=== PATIENT | male | born 1975 | race African-American/Black ===

== ENCOUNTER 2018-06-15 20:08 | Inpatient (IN) ==
[2018-06-15] MEDS ORDERED: KETOROLAC 30 MG/ML VIAL IV STA (20:28)
[2018-06-15] MEDS ORDERED: ONDANSETRON INJ 2 MG/ML 2 ML VIAL IV STA (20:28)
[2018-06-15] MEDS ORDERED: SODIUM CHLORIDE 0.9% 1000ML 1,000 ML IV SCH ×2 (20:30→22:45)
[2018-06-15 20:48] LABS: Basophils # (auto) 0.01 K/uL (0-0.2); Basophils % (auto) 0.1 %; Eosinophils # (auto) 0.13 K/uL (0-0.5); Eosinophils % (auto) 1.1 %; Hematocrit (blood only) 42.1 % (42-52); Hemoglobin 14.6 g/dL (14.0-18.0); Immature Granulocytes # (auto) 0.03 K/uL (0.00-0.02); Immature Granulocytes % (auto) 0.3 %; Lymphocytes # (auto) 3.56 K/uL (1.2-3.4); Lymphocytes % (auto) 29.7 %; Mean Corpuscular Hgb Conc 34.7 g/dL (32-36); Mean Corpuscular Volume 91.1 fL (80-100); Mean Platelet Volume 9.9 fL (7.4-10.4); Monocytes # (auto) 0.62 K/uL (0.11-0.59); Monocytes % (auto) 5.2 %; Neutrophils # (auto) 7.62 K/uL (1.4-6.5); Neutrophils % (auto) 63.6 %; Platelet Count 243 K/uL (130-400); RDW Coefficient of Variation 13.9 % (11.5-14.5); RDW Standard Deviation 46.6 fL (36.4-46.3); Red Blood Count 4.62 M/uL (4.7-6.1); White Blood Count 11.97 K/uL (4.8-10.8)
[2018-06-15] MEDS: HYDROmorphone INJ 1 MG/ML SYRINGE IV PRN (20:51)
--- NOTE | 2018-06-15 20:54 | XRay Report ---
XR ribs LT min 3V w CXR1V HISTORY: 42 years-old Male Pt c/o left rib pain acute left-sided rib pain COMPARISON: Chest radiograph 10/06/2015 TECHNIQUE: PA view of the chest with 4 views of the left ribs FINDINGS: Cardiomediastinal and hilar silhouettes are within normal limits. Mild right hemidiaphragmatic elevat ion. No pneumothorax, pleural effusion, focal airspace consolidation or overt pulmonary edema. No acu te displaced rib fracture identified. IMPRESSION: 1. No acute processes of the chest. 2. No acute rib fracture or pneumothorax. The above report was generated using voice recognition software. It may contain grammatical, syntax o r spelling errors. Electronically signed by: Josiah Ponce M.D. 06/15/2018 8:52 PM
[2018-06-15 21:08] LABS: Albumin Level 3.9 gm/dl (3.4-5.0); BUN Creatinine Ratio 10.3 (10-20); Calcium 8.5 mg/dl (8.5-10.1); Creatinine Clr Calc Pharmacy 76.4 ml/min; Est GFR (African American) 57.6; Est GFR (Non-African American) 49.7; Potassium 4.1 mmol/L (3.5-5.1)
[2018-06-15 21:11] LABS: Bilirubin,Total 0.4 mg/dl (0.2-1); Globulin 4.1 gm/dl (2.5-4.0)
[2018-06-15 21:55] LABS: Appearance Urine Clear (Clear); Bilirubin Urine Negative (Negative); Color Urine Yellow; Glucose Urine UA Negative (Negative); Ketones Urine Negative (Negative); Leukocyte Esterase Urine Negative (Negative); Nitrite Urine Negative (Negative); Protein Urine Negative (Negative); Specific Gravity Urine 1.018 (1.000-1.030); Urobilinogen Urine Negative (Negative); pH Urine 7.5 (4.5-7.5)
--- NOTE | 2018-06-15 22:14 | CT Scan Report ---
ABDOMEN AND PELVIS CT WITHOUT CONTRAST CT DOSE: 1057.37 mGy.cm HISTORY: Acute left-sided flank pain Pt c/o left flank pain TECHNIQUE: Multiaxial CT images of the abdomen and pelvis were performed without contrast. A dose lo wering technique was utilized adhering to the principles of ALARA. COMPARISON STUDY: None. FINDINGS: There is a lobular linear nodular density about the lateral basal segment left lower lobe measuring u p to 3.0 cm in length suggestive of mucoid impaction and expansion of the bronchus with minimal assoc iated tree-in-bud nodules seen distally suggesting associated bronchiolitis. Punctate calcified granu lomata about the left lung base. Ptosis or pneumoperitoneum. Imaged inferior cardiac chambers are unr emarkable. Contracted gallbladder. Liver is unremarkable. Spleen, and pancreas appear unremarkable. Mild strandi ng about the left greater than right adrenal glands, indeterminate. Additionally, there is mild thick ening about the bilateral adrenal glands. Indeterminate area of slightly decreased attenuation about the posterior interpolar left kidney, 11 mm suggests renal cyst. No renal calculi or obstructive urop athy. Minimal perinephric stranding adjacent to the superior pole left kidney. Mild wall thickening o f the bladder with partial distention. Prostate is unremarkable. Aorta and IVC are within normal limi ts. No bowel obstruction or focal bowel wall thickening. Normal appendix. No ascites or mesenteric in flammatory changes. Mildly prominent bilateral inguinal chain lymph nodes, likely reactive. Bones appear intact. Multilev el spondylitic spurring and facet arthrosis. Moderate intervertebral disc space narrowing at L5-S1. B ilateral foraminal narrowing noted at this interspace. Subcortical cystic changes about the bilateral femoral acetabular joints with joint space narrowing. IMPRESSION: 1. No renal calculi or obstructive uropathy. 2. Mild thickening with surrounding inflammatory stranding about the left greater than right adrenal glands. This finding is nonspecific with differential considerations including adrenal insufficiency or subacute adrenal hemorrhage. 3. No bowel obstruction or focal bowel wall thickening. Normal appendix. 4. Tubular linear 3.0 cm lesion of the lateral basal segment left lower lobe suggests bronchial mucou s plugging with minimal adjacent bronchiolitis. 5. Additional findings as above. Electronically signed by: Josiah Ponce M.D. 06/15/2018 10:13 PM
[2018-06-16] MEDS: HYDROmorphone INJ 1 MG/ML SYRINGE IV PRN ×6 (00:08→21:14)
[2018-06-16] MEDS ORDERED: ACETAMINOPHEN 1000 MG/100 ML IV IV PRN (00:29)
--- NOTE | 2018-06-16 00:47 | History & Physical Report ---
Date of Service June 16, 2018 Assessment & Plan (1) Acute flank pain: 42-year-old male was admitted on 16 June 2018 with c/o left flank pain and evidence of adrenal hemorrhage on CT. Left flank pain and concern for adrenal hemorrhage: Acute onset of pain about 24 hours prior to admit following increased cough. CT a/p non-con concerning for possible adrenal hemorrhage. In ED, pain treated with toradol & dilaudid. Per their notes, Dr. William of [facility] endocrinology recommended MRI and admission. - Is pending a MRI of his abdomen for further evaluation. - Cancelled urgent serum catecholamines and urine metanephrines, as patient needs to be NPO for at least four hours. Will obtain those tests then. - Ordered routine renin and aldosterone levels. - May need combination of Hydrocortisone 100 mg IV q8h and Fludrocortisone 0.1 mg PO BID. It was not immediately ordered. Cough: He attributes his cough to smoking (cigarettes and marijuana). Denies chest pain or shortness of breath. Says he had the flu a week ago with symptom resolution three days later except the cough. Was taking an OTC cold medicine, possibly Coricidin HBP. Here is afebrile, not tachycardic or tachypneic, normal room SpO2, and clear lungs to auscultation. Elevated BP: Initially 169/103. Monitoring along with adrenal workup as above. Elevated creatinine: Admit Cr 1.67. No available comparison and patient denies underlying known renal disease. UA clear. Says he occasionally takes ibuprofen for back pain. - Will recheck with AM labs after some IVF. Substance abuse: Patient admits to frequent marijuana use as well as street- derived Suboxone for back pain. He denies ever using heroin or opioids directly. - Ordered urine drug screen. Abdominal wall mass: Patient says this is been present for quite some time and is not really bothersome to him. Statistically I suspect it is a lipoma. Recommended he have close outpatient follow-up for further evaluation and potential removal. Code status: Full code. Diet: NPO. DVT prophy: SCDs. PT/OT: Deferred. Disbo: Admit to PCU/telemetry. (2) Adrenal hemorrhage: (3) Cough: (4) Elevated BP without diagnosis of hypertension: (5) Elevated serum creatinine: (6) Substance abuse: (7) Abdominal wall mass of right lower quadrant: History of Present Illness Primary Care Provider: Vivian Kaur MD 42-year-old male presents complaining of the acute onset of left, non-radiating flank pain beginning the late evening of June 15. He says that he has been coughing more harshly over the past week and the pain was of sudden onset at the time of a strong cough. He says his cough may be related to either having "the flu" a week ago or because he says he has been smoking both cigarettes and marijuana quite frequently. He will not clarify exactly how much tobacco or marijuana he consumes. Regarding his self-reported flu symptoms , he says he had a subjective fever and general flu symptoms but that resolved within 3-4 days. He says he continues to have a cough occasionally productive of mucus. Regarding the flank pain, he says he has never had similar pain prior. He says the pain never completely resolved since its onset but has improved with pain medicines in the ED. He denies taking any mius-cpt-lpcuhcc pain medications for this. However, he does admit to using Suboxone obtained from his friends about every other day for perhaps the past year (though he will not clarify). He denies any previous opioid or heroin use and says that he started the Suboxone due to low back pain. He did take some Coricidin HBP for his flu symptoms. He also occasionally takes ibuprofen. He states that this flank pain remains localized and denies any chest pain, shortness of breath , anterior abdominal pain, recent trauma or injuries, or any other acute concerns. Allergies Allergy/AdvReac Type Severity Reaction Status Date / Time No Known Allergies Allergy Verified 06/15/18 20:33 Home Medications Home Medications Medication Instructions Recorded Confirmed Type Otc Cold & Flu Med 1 dose PO DIRECTED PRN 06/15/18 06/15/18 History oxycodone-acetaminophen [Percocet] 1 tab PO Q6H #14 tab 06/15/18 Rx Past Med/Surg History Medical History Flu Gout Family History Other Cancer Diabetes High blood pressure Social History Current Living Situation: Significant Other Current Living Situation Comment: [facility] Other Information That Helps Us Care for You: No Feels Safe at Home: Yes Safety Concerns: Feels Safe At This Time Smoking Status: Current every day smoker Tobacco Type: cigarettes Do You Dip or Chew Tobacco: No Second Hand Exposure: Yes Tobacco Cessation Education Requested by Patient: No Hx Alcohol Use: Yes Alcohol type: beer and hard liquor Alcohol Intake Frequency : a few times a month Hx Substance Use: Yes substance use type: marijuana Last Used Substance: Days ( ago) Beliefs That Will Affect Care: None Preferred Language: Yi Communication Ability: Effective Parachute Crown Sewer Required: No Review of Systems Constitutional: Denies fevers, chills, focal weakness Eyes: Denies any visual loss or diplopia ENT: Denies any ear/nose/throat pain or difficulty speaking or swallowing Respiratory: Denies any dyspnea, hemoptysis Cardiovascular: Denies any chest pain or feeling of edema Gastrointestinal: Denies any abdominal pain, nausea/vomiting/diarrhea Musculoskeletal: Denies any acute extremity pains, myalgias, or focal weakness Skin: Denies any known acute rashes or lesions Neuro: Denies any headache, acute focal weakness or numbness, or difficulties with speech or swallow. Psych: Denies any recent depression or anxiety Endocrine: Denies any changes in urination. Physical Exam 2 Vital Signs (Past 24 Hours): Last Vital Signs Temp 37 C 06/15/18 20:14 Pulse 71 06/16/18 00:29 Resp 18 06/16/18 00:29 BP 169/107 H 06/16/18 00:29 Pulse Ox 99 06/16/18 00:29 Physical Exam: GENERAL: Awake, alert, well-appearing, in no acute distress HENT: Normocephalic, atraumatic. Oropharynx unremarkable. EYES: Normal conjunctiva. Sclera non-icteric. NECK: Inspection normal. Non-tender. Supple and full ROM. No nuchal rigidity. CARDIAC: +S1S2 RRR, no murmurs. RESPIRATORY: Clear to auscultation. No wheezes or rales. Normal respiratory effort. GI: +BS, soft, non-distended. No tenderness to palpation. No rebound or guarding. No appreciable masses. EXTREMITIES: No pedal edema or calf tenderness. Moving all extremities naturally and easily. NEURO: No gross neuro deficits. Skin: There is an approx. four cm palpable mass in the very low lateral right lower quadrant abdominal region that is non-tender, has no overlying skin changes, and has the consistency of a lipoma. Lines: PIV. Results & Data Laboratory Results 06/15/18 06/15/18 06/15/18 Range/Units 21:30 21:30 20:30 WBC (4.8-10.8) K/uL RBC (4.7-6.1) M/uL Hgb (14.0-18.0) g/dL Hct (42-52) % MCV (80-100) fL MCH (25-34) pg MCHC (32-36) g/dL RDW Std Deviation (36.4-46.3) fL RDW Coeff of Natalie (11.5-14.5) % Plt Count (130-400) K/uL MPV (7.4-10.4) fL Immature Gran % (Auto) % Neut % (Auto) % Lymph % (Auto) % White % (Auto) % Eos % (Auto) % Baso % (Auto) % Immature Gran # (Auto) (0.00-0.02) K/uL Neut # (Auto) (1.4-6.5) K/uL Lymph # (Auto) (1.2-3.4) K/uL White # (Auto) (0.11-0.59) K/uL Eos # (Auto) (0-0.5) K/uL Baso # (Auto) (0-0.2) K/uL Sodium (136-145) mmol/L Potassium (3.5-5.1) mmol/L Chloride (98-107) mmol/L Carbon Dioxide (21-32) mmol/L Anion Gap (3-11) BUN (7-18) mg/dl Creatinine (0.6-1.4) mg/dl Est Cr Clr Drug Dosing ml/min Est GFR ( Amer) Est GFR (Non-Af Amer) BUN/Creatinine Ratio (10-20) Glucose (70-99) mg/dl Calcium (8.5-10.1) mg/dl Total Bilirubin (0.2-1) mg/dl AST (15-37) U/L ALT (12-78) U/L Alkaline Phosphatase (45-117) U/L Total Protein (6.4-8.2) gm/dl Albumin (3.4-5.0) gm/dl Globulin (2.5-4.0) gm/dl Albumin/Globulin Ratio (0.9-2) Lipase (73-393) U/L Random Cortisol Pending Urine Color Yellow Urine Appearance Clear (Clear) Urine pH 7.5 (4.5-7.5) Ur Specific Delmar 1.018 (1.000-1.030) Urine Protein Negative (Negative) Urine Glucose (UA) Negative (Negative) Urine Ketones Negative (Negative) Urine Blood Negative (Negative) Urine Nitrite Negative (Negative) Urine Bilirubin Negative (Negative) Urine Urobilinogen Negative (Negative) Ur Leukocyte Esterase Negative (Negative) Ur Random Creatinine Pending Ur Rifle Metanephrines Pending U Normetanephrine Pending U Total Metanephrines Pending 06/15/18 06/15/18 Range/Units 20:30 20:30 WBC 11.97 H (4.8-10.8) K/uL RBC 4.62 L (4.7-6.1) M/uL Hgb 14.6 (14.0-18.0) g/dL Hct 42.1 (42-52) % MCV 91.1 (80-100) fL MCH 31.6 (25-34) pg MCHC 34.7 (32-36) g/dL RDW Std Deviation 46.6 H (36.4-46.3) fL RDW Coeff of Natalie 13.9 (11.5-14.5) % Plt Count 243 (130-400) K/uL MPV 9.9 (7.4-10.4) fL Immature Gran % (Auto) 0.3 % Neut % (Auto) 63.6 % Lymph % (Auto) 29.7 % White % (Auto) 5.2 % Eos % (Auto) 1.1 % Baso % (Auto) 0.1 % Immature Gran # (Auto) 0.03 H (0.00-0.02) K/uL Neut # (Auto) 7.62 H (1.4-6.5) K/uL Lymph # (Auto) 3.56 H (1.2-3.4) K/uL White # (Auto) 0.62 H (0.11-0.59) K/uL Eos # (Auto) 0.13 (0-0.5) K/uL Baso # (Auto) 0.01 (0-0.2) K/uL Sodium 141 (136-145) mmol/L Potassium 4.1 (3.5-5.1) mmol/L Chloride 109 H (98-107) mmol/L Carbon Dioxide 26 (21-32) mmol/L Anion Gap 7.0 (3-11) BUN 17 (7-18) mg/dl Creatinine 1.67 H (0.6-1.4) mg/dl Est Cr Clr Drug Dosing 76.4 ml/min Est GFR ( Amer) 57.6 Est GFR (Non-Af Amer) 49.7 BUN/Creatinine Ratio 10.3 (10-20) Glucose 97 (70-99) mg/dl Calcium 8.5 (8.5-10.1) mg/dl Total Bilirubin 0.4 (0.2-1) mg/dl AST 23 (15-37) U/L ALT 34 (12-78) U/L Alkaline Phosphatase 82 (45-117) U/L Total Protein 8.0 (6.4-8.2) gm/dl Albumin 3.9 (3.4-5.0) gm/dl Globulin 4.1 H (2.5-4.0) gm/dl Albumin/Globulin Ratio 1.0 (0.9-2) Lipase 109 (73-393) U/L Random Cortisol Urine Color Urine Appearance (Clear) Urine pH (4.5-7.5) Ur Specific Delmar (1.000-1.030) Urine Protein (Negative) Urine Glucose (UA) (Negative) Urine Ketones (Negative) Urine Blood (Negative) Urine Nitrite (Negative) Urine Bilirubin (Negative) Urine Urobilinogen (Negative) Ur Leukocyte Esterase (Negative) Ur Random Creatinine Ur Rifle Metanephrines U Normetanephrine U Total Metanephrines Diagnostic Findings XR ribs LT min 3V w CXR1V IMPRESSION: 1. No acute processes of the chest. 2. No acute rib fracture or pneumothorax. ABDOMEN AND PELVIS CT WITHOUT CONTRAST IMPRESSION: 1. No renal calculi or obstructive uropathy. 2. Mild thickening with surrounding inflammatory stranding about the left greater than right adrenal glands. This finding is nonspecific with differential considerations including adrenal insufficiency or subacute adrenal hemorrhage. 3. No bowel obstruction or focal bowel wall thickening. Normal appendix. 4. Tubular linear 3.0 cm lesion of the lateral basal segment left lower lobe suggests bronchial mucous plugging with minimal adjacent bronchiolitis. 5. Additional findings as above. Code Status & VTE Plan Code Status Full code VTE Prophylaxis Plan VTE Prophylaxis will be ordered: Yes Supervising Physician Co-Signing Physician Notes Attending addendum: I have physically seen this patient, have supervised the medical residents activities, and agree with the H&P unless as otherwise noted. Assessment and Plan: Acute flank pain/bilateral adrenal gland hemorrhage/hypertensive urgency/acute kidney injury-- As noted on CT. Order MRI of abdomen, attention adrenals and kidneys. Serum catecholamines and urine metanephrine. Serum renin and aldosterone. Cortrosyn stim test. Gentle IVF's. Serial CBC with differential, basic metabolic panel and magnesium levels. Lopressor 5 mg IV every 4 hours as needed systolic blood pressure greater than 150 if heart rate greater than 70. Hydralazine 10 mg IV every 4 hours as needed systolic blood pressure greater than 150 if heart rate less than 70. Remainder of orders and notations as noted. Resident Activity Tracking Resident Involvement: Resident Care Provided Care Provided: Adult Hospital Medicine
[2018-06-16] MEDS: SODIUM CHLORIDE 0.9% 1000ML 1,000 ML IV SCH ×3 (01:39→21:15)
[2018-06-16 03:25] LABS: Amphetamines+Metham, Urine Neg (Neg); Barbiturates, Urine Neg (Neg); Benzodiazepine, Urine Neg (Neg); Cocaine, Urine Neg (Neg); MDMA (Ecstacy), Urine Neg (Neg); Methadone, Urine Neg (Neg); Opiate, Urine Pos (Neg); Phencyclidine, Urine Neg (Neg)
[2018-06-16 06:45] LABS: Basophils # (auto) 0.01 K/uL (0-0.2); Basophils % (auto) 0.1 %; Eosinophils # (auto) 0.12 K/uL (0-0.5); Eosinophils % (auto) 1.2 %; Hematocrit (blood only) 40.5 % (42-52); Hemoglobin 13.7 g/dL (14.0-18.0); Immature Granulocytes # (auto) 0.04 K/uL (0.00-0.02); Immature Granulocytes % (auto) 0.4 %; Lymphocytes # (auto) 3.51 K/uL (1.2-3.4); Lymphocytes % (auto) 35.5 %; Mean Corpuscular Hgb Conc 33.8 g/dL (32-36); Mean Platelet Volume 9.9 fL (7.4-10.4); Monocytes # (auto) 0.62 K/uL (0.11-0.59); Monocytes % (auto) 6.3 %; Neutrophils # (auto) 5.59 K/uL (1.4-6.5); Neutrophils % (auto) 56.5 %; Platelet Count 235 K/uL (130-400); RDW Coefficient of Variation 13.9 % (11.5-14.5); RDW Standard Deviation 45.9 fL (36.4-46.3); Red Blood Count 4.45 M/uL (4.7-6.1); White Blood Count 9.89 K/uL (4.8-10.8)
[2018-06-16 07:09] LABS: Est GFR (African American) 74.5; Est GFR (Non-African American) 64.3
[2018-06-16 07:10] LABS: BUN Creatinine Ratio 11.7 (10-20); Calcium 8.4 mg/dl (8.5-10.1); Creatinine Clr Calc Pharmacy 94.8 ml/min
--- NOTE | 2018-06-16 07:35 | Magnetic Resonance Report ---
MRI OF THE ABDOMEN WITHOUT CONTRAST ADRENAL PROTOCOL CLINICAL HISTORY: Left flank pain. Possible adrenal hemorrhage. TECHNIQUE: Imaging was performed without IV contrast enhancement. COMPARISON STUDY: CT of the abdomen and pelvis June 15, 2018. FINDINGS: The adrenal glands are unremarkable on this examination. Specifically, no adrenal hemorrhag e or mass is present. Unenhanced images of the liver, pancreas and kidneys are unremarkable with exce ption of a few suspected subcentimeter bilateral renal cysts. There is no hydronephrosis. There is no upper abdominal adenopathy or ascites. There is no biliary or pancreatic ductal dilatation. No galls tones are identified. Note is made of mild increased T2 signal suggestive of edema/contusion within t he left lateral abdominal wall muscular shown best on axial image 15 of 26. No additional abnormaliti es are identified. IMPRESSION: 1. Unremarkable MRI of the adrenal glands. 2. Mild increased T2 signal within the left lateral abdominal wall musculature which likely accounts for the patient's left flank pain. This may reflect edema or contusion/small amount of hemorrhage if recent injury. Electronically signed by: Musa Bernard M.D. 06/16/2018 7:33 AM
[2018-06-16] MEDS ORDERED: COSYNTROPIN 250 MCG in SYRINGE 4 ML IV ONE (08:30)
[2018-06-16] MEDS ORDERED: AMLODIPINE BESYLATE 5 MG TAB PO ONE (09:18)
[2018-06-16] MEDS ORDERED: LISINOPRIL 10 MG TAB PO ONE (16:15)
[2018-06-16] MEDS ORDERED: guaiFENesin 600 MG TABCR PO ONE (16:30)
[2018-06-16] MEDS: LIDOCAINE 5% 1 PATCH TD SCH (16:41)
[2018-06-16] MEDS ORDERED: guaiFENesin 600 MG TABCR PO SCH (21:00)
--- NOTE | 2018-06-16 23:39 | Communication Note ---
Date of Service: June 16, 2018 Patient appears to be chronically hypertensive. Patient states that he does not regularly followup with PCP. Patient reports having pain in his left side, pain worsens with cough. He feels he may have strained himself while coughing. Patient is informed of his lab results and imaging, it does not appear patient has a hemorrhage of his adrenal glands. For his HTN, will place on amlodipine and lisnopril. Will f/u BP in AM. If BP is improved and pain is better controlled will discharge patient in AM. Patient has required IV narcotics for pain control today. Will add a one time dose of mucinex.
[2018-06-17] MEDS: HYDROmorphone INJ 1 MG/ML SYRINGE IV PRN ×2 (05:12→10:56)
[2018-06-17] MEDS: SODIUM CHLORIDE 0.9% 1000ML 1,000 ML IV SCH (06:23)
[2018-06-17] MEDS ORDERED: guaiFENesin 600 MG TABCR PO STA (07:28)
[2018-06-17 08:20] LABS: Hematocrit (blood only) 42.7 % (42-52); Hemoglobin 15.3 g/dL (14.0-18.0); Mean Corpuscular Hgb Conc 35.8 g/dL (32-36); Mean Corpuscular Volume 89.9 fL (80-100); Mean Platelet Volume 9.9 fL (7.4-10.4); Platelet Count 265 K/uL (130-400); RDW Coefficient of Variation 13.5 % (11.5-14.5); RDW Standard Deviation 44.5 fL (36.4-46.3); Red Blood Count 4.75 M/uL (4.7-6.1); White Blood Count 11.56 K/uL (4.8-10.8)
[2018-06-17 08:36] LABS: BUN Creatinine Ratio 9.2 (10-20); Creatinine Clr Calc Pharmacy 86.2 ml/min; Est GFR (African American) 67.8; Est GFR (Non-African American) 58.5; Potassium 3.9 mmol/L (3.5-5.1)
[2018-06-17] MEDS: LIDOCAINE 5% 1 PATCH TD SCH (08:45)
[2018-06-17] MEDS ORDERED: AMLODIPINE BESYLATE 5 MG TAB PO ONE (10:24)
[2018-06-17 11:17] VITALS: TEMP 98.1; O2SAT 99
[2018-06-17 12:16] VITALS: BP 164/113
[2018-06-17 12:56] VITALS: PULSE 59
--- NOTE | 2018-06-17 19:49 | Emergency Department Note ---
Entered by Jennifer Noguera acting as a scribe for Сергей Dhaliwal MD History of Present Illness General Chief complaint: Flank Pain Stated complaint: L FLANK PAIN Time Seen by Provider: 06/15/18 20:19 Source: patient History of Present Illness Onset (ago): day(s) 1 Location: left (Flank) Radiation: non-radiation Pain Consistency: + other (Persistent) Maximum Pain Intensity: 8 Quality: + other (Flank pain) Exacerbated By: + other (Coughing) Associated symptoms: + cough Treatments prior to arrival: none The patient is a 42 year old male who presents to the Emergency Room with complaints of sudden left flank pain starting 1 day ago. The patient reports that he has severe left flank pain and a cough. He adds that his left flank pain is non-radiating. He states that coughing makes his flank pain worse. He notes that he has never had this pain before. The patient reports that he took nothing for his symptoms ASPHALT COATER. Home Medications Home Medications Medication Instructions Recorded Confirmed Type Otc Cold & Flu Med 1 dose PO DIRECTED PRN 06/15/18 06/15/18 History oxycodone-acetaminophen [Percocet] 1 tab PO Q6H #14 tab 06/15/18 Rx amlodipine 5 mg PO DAILY #30 tab 06/17/18 Rx guaifenesin [Mucinex] 1,200 mg PO Q12 #14 tab 06/17/18 Rx lisinopril 10 mg PO HS #30 tab 06/17/18 Rx oxycodone 5 mg PO Q6H PRN #20 tab 06/17/18 Rx Allergies Allergy/AdvReac Type Severity Reaction Status Date / Time No Known Allergies Allergy Verified 06/15/18 20:33 Past Med/Surg History Medical History Flu Gout Family History Other Cancer Diabetes High blood pressure Social History Current Living Situation: Significant Other Current Living Situation Comment: [facility] [employer] Other Information That Helps Us Care for You: No Feels Safe at Home: Yes Safety Concerns: Feels Safe At This Time Smoking Status: Current every day smoker Tobacco Type: cigarettes Do You Dip or Chew Tobacco: No Second Hand Exposure: Yes Tobacco Cessation Education Requested by Patient: No Hx Alcohol Use: Yes Alcohol type: beer and hard liquor Alcohol Intake Frequency : a few times a month Hx Substance Use: Yes substance use type: marijuana Last Used Substance: Days ( ago) Beliefs That Will Affect Care: None Preferred Language: American Review of Systems See HPI for pertinent positives & negatives. and A total of 10 systems reviewed and were otherwise negative Physical Exam Vital Signs Vital Signs - 24 hr 06/16/18 19:48 06/16/18 20:00 06/16/18 23:39 Temperature 36.8 C 37.5 C Temperature Source Oral Oral Pulse Rate Pulse Rate [Finger] 66 70 Respiratory Rate 18 19 Respiratory Effort / Characteristics Non-Labored Spontaneous Respiratory Depth Normal Respiratory Pattern Regular Blood Pressure [Left Arm] 157/102 H 161/112 H Blood Pressure [Right Arm] Blood Pressure Mean [Left Arm] 120 128 Blood Pressure Position [Left Arm] Lying Lying Pulse Oximetry 97 91 Oxygen Delivery Method Room Air Room Air Room Air 06/17/18 02:53 06/17/18 07:30 06/17/18 07:36 Temperature 36.9 C 37.0 C Temperature Source Oral Oral Pulse Rate 59 L Pulse Rate [Finger] 64 59 L Respiratory Rate 19 16 Respiratory Effort / Characteristics Non-Labored Spontaneous Respiratory Depth Normal Respiratory Pattern Regular Blood Pressure [Left Arm] 146/96 H 165/104 H Blood Pressure [Right Arm] Blood Pressure Mean [Left Arm] 112 124 Blood Pressure Position [Left Arm] Lying Lying Pulse Oximetry 99 97 Oxygen Delivery Method Room Air Room Air 06/17/18 11:15 06/17/18 12:09 Temperature 36.7 C 36.7 C Temperature Source Oral Pulse Rate Pulse Rate [Finger] 85 85 Respiratory Rate 20 20 Respiratory Effort / Characteristics Respiratory Depth Respiratory Pattern Blood Pressure [Left Arm] 157/109 H 157/109 H Blood Pressure [Right Arm] 164/113 H Blood Pressure Mean [Left Arm] 125 Blood Pressure Position [Left Arm] Pulse Oximetry 99 99 Oxygen Delivery Method Room Air GENERAL: Awake, alert, well-appearing, in no distress HENT: Normocephalic, atraumatic. Oropharynx unremarkable. EYES: Normal conjunctiva. Sclera non-icteric. NECK: Inspection normal. Non-tender. Supple. No nuchal rigidity. FROM. No masses. RESPIRATORY: Clear to auscultation. No wheezes. No rales. Normal respiratory effort. CARDIAC: Normal rate. Normal rhythm. No murmurs. No rubs. Extremities warm and well perfused. Pulses equal. No JVD. GI: Soft, non-distended. No tenderness to palpation. No rebound or guarding. No masses. RECTAL: Deferred. MUSCULOSKELETAL: Atraumatic. Chest examination reveals no tenderness. The back is symmetrical on inspection without obvious abnormality. There is no CVA tenderness to palpation. No joint edema. LOWER EXTREMITIES: Calves are equal size bilaterally and non-tender. No edema. No discoloration. NEURO: Normal sensorium. No sensory or motor deficits noted. SKIN: No rash or jaundice noted. Course 2021: Past medical records reviewed. The patient was evaluated in room B4B, and a complete history and physical examination were performed. 2221: I reevaluated the patient at this time and updated him on his imaging study findings. 2222: I spoke with Dr. Ponce [facility] radiologist about the patients CT A/ P. 2237: I reviewed the patient's case with Dr. Terrance Saha [facility] hospitalist who recommended that the patient get an MRI. 2250: I reevaluated the patient at this time. 2258: I reviewed the patient's case with Dr. Stewart Patten touch up worker who recommends that the patient get an MRI without contrast and that the patient be admitted for additional testing. I reviewed the patient's case with Dr. Terrance Saha [facility] hospitalist. He will evaluate the patient for further management. Administered Medications Discontinued Medications Amlodipine Besylate (Norvasc) 5 mg PO NOW ONE Stop: 06/16/18 09:19 Last Admin: 06/16/18 09:52 Dose: 5 mg Amlodipine Besylate (Norvasc) 5 mg PO NOW ONE Stop: 06/17/18 10:25 Last Admin: 06/17/18 10:56 Dose: 5 mg Guaifenesin (Mucinex) 1,200 mg PO NOW ONE Stop: 06/16/18 16:31 Last Admin: 06/16/18 16:42 Dose: 1,200 mg Guaifenesin (Mucinex) 1,200 mg PO ONE STA Stop: 06/17/18 07:29 Last Admin: 06/17/18 08:45 Dose: 1,200 mg Hydromorphone HCl (Dilaudid) 1 mg IV Q15M PRN PRN Reason: Pain Stop: 06/29/18 20:27 Last Admin: 06/16/18 00:08 Dose: 1 mg Admin: 06/15/18 20:51 Dose: 1 mg Hydromorphone HCl (Dilaudid) 1 mg IV Q4H PRN PRN Reason: Pain Stop: 06/30/18 00:28 Last Admin: 06/17/18 10:56 Dose: 1 mg Admin: 06/17/18 05:12 Dose: 1 mg Admin: 06/16/18 21:14 Dose: 1 mg Admin: 06/16/18 16:12 Dose: 1 mg Admin: 06/16/18 11:12 Dose: 1 mg Admin: 06/16/18 05:59 Dose: 1 mg Admin: 06/16/18 01:36 Dose: 1 mg Sodium Chloride (Nss 1000ml) 1,000 mls @ 999 mls/hr IV .Q1H1M NICOLASA Stop: 06/15/18 21:30 Last Infusion: 06/15/18 21:45 Dose: 0 mls/hr Admin: 06/15/18 20:52 Dose: 999 mls/hr Sodium Chloride (Nss 1000ml) 1,000 mls @ 999 mls/hr IV .Q1H1M NICOLASA Stop: 06/15/18 23:45 Last Infusion: 06/16/18 00:05 Dose: 0 mls/hr Admin: 06/15/18 22:46 Dose: 999 mls/hr Sodium Chloride (Nss 1000ml) 1,000 mls @ 100 mls/hr IV .Q10H NICOLASA Stop: 07/16/18 00:29 Last Admin: 06/17/18 06:23 Dose: 100 mls/hr Infusion: 06/17/18 06:23 Dose: 100 mls/hr Admin: 06/16/18 21:15 Dose: 100 mls/hr Infusion: 06/16/18 21:15 Dose: 100 mls/hr Admin: 06/16/18 13:01 Dose: 100 mls/hr Infusion: 06/16/18 12:37 Dose: 100 mls/hr Infusion: 06/16/18 03:05 Dose: 100 mls/hr Infusion: 06/16/18 02:08 Dose: 0 mls/hr Admin: 06/16/18 01:39 Dose: 100 mls/hr Cosyntropin 250 mcg/ Syringe 5 mls @ 2.5 mls/min IV TODAY@0830 ONE Stop: 06/16/18 08:31 Last Admin: 06/16/18 09:35 Dose: 2.5 mls/min Ketorolac Tromethamine (Toradol) 30 mg IV NOW STA Stop: 06/15/18 20:29 Last Admin: 06/15/18 20:51 Dose: 30 mg Lidocaine (Lidoderm 5%) 1 patch TD QAM [facility] Stop: 07/16/18 16:14 Last Admin: 06/17/18 08:45 Dose: 1 patch Admin: 06/16/18 16:41 Dose: 1 patch Lisinopril (Zestril) 10 mg PO NOW ONE Stop: 06/16/18 16:16 Last Admin: 06/16/18 16:42 Dose: 10 mg Miscellaneous (Remove Lidoderm Patch) 1 ea N/A DAILY@2100 [facility] Stop: 07/16/18 20:59 Last Admin: 06/16/18 21:21 Dose: Not Given Ondansetron HCl (Zofran) 4 mg IV NOW STA Stop: 06/15/18 20:29 Last Admin: 06/15/18 20:51 Dose: 4 mg Medical Decision Making Differential Diagnosis Differential considered: pancreatitis, hepatitis, or acute cholecystitis, AAA, UTI, pyelonephritis, kidney stones, appendicitis, diverticulitis, shingles, bowel obstruction mesenteric ischemia, intussusception,hernia, testicular torsion, ovarian torsion, ruptured ovarian cyst,ectopic , . Medical Records Attestation: I reviewed the patient's medical records. Home Medications Current Medication List: was personally reviewed by me Laboratory Data Attestation: I reviewed the patient's lab results. Result diagrams: 06/17/18 07:57 06/17/18 07:57 Lab Results 06/15/18 06/15/18 06/15/18 Range/Units 20:30 20:30 20:30 WBC 11.97 H (4.8-10.8) K/uL RBC 4.62 L (4.7-6.1) M/uL Hgb 14.6 (14.0-18.0) g/dL Hct 42.1 (42-52) % MCV 91.1 (80-100) fL MCH 31.6 (25-34) pg MCHC 34.7 (32-36) g/dL RDW Std Deviation 46.6 H (36.4-46.3) fL RDW Coeff of Natalie 13.9 (11.5-14.5) % Plt Count 243 (130-400) K/uL MPV 9.9 (7.4-10.4) fL Immature Gran % (Auto) 0.3 % Neut % (Auto) 63.6 % Lymph % (Auto) 29.7 % Angelina % (Auto) 5.2 % Eos % (Auto) 1.1 % Baso % (Auto) 0.1 % Immature Gran # (Auto) 0.03 H (0.00-0.02) K/uL Neut # (Auto) 7.62 H (1.4-6.5) K/uL Lymph # (Auto) 3.56 H (1.2-3.4) K/uL Angelina # (Auto) 0.62 H (0.11-0.59) K/uL Eos # (Auto) 0.13 (0-0.5) K/uL Baso # (Auto) 0.01 (0-0.2) K/uL Sodium 141 (136-145) mmol/L Potassium 4.1 (3.5-5.1) mmol/L Chloride 109 H (98-107) mmol/L Carbon Dioxide 26 (21-32) mmol/L Anion Gap 7.0 (3-11) BUN 17 (7-18) mg/dl Creatinine 1.67 H (0.6-1.4) mg/dl Est Cr Clr Drug Dosing 76.4 ml/min Est GFR ( Amer) 57.6 Est GFR (Non-Af Amer) 49.7 BUN/Creatinine Ratio 10.3 (10-20) Glucose 97 (70-99) mg/dl Calcium 8.5 (8.5-10.1) mg/dl Total Bilirubin 0.4 (0.2-1) mg/dl AST 23 (15-37) U/L ALT 34 (12-78) U/L Alkaline Phosphatase 82 (45-117) U/L Total Protein 8.0 (6.4-8.2) gm/dl Albumin 3.9 (3.4-5.0) gm/dl Globulin 4.1 H (2.5-4.0) gm/dl Albumin/Globulin Ratio 1.0 (0.9-2) Lipase 109 (73-393) U/L Random Cortisol 22.79 mcg/dl Cortisol Response mcg/dl Cortisol AM Sample Cortisol PM Sample Cancelled Urine Color Urine Appearance (Clear) Urine pH (4.5-7.5) Ur Specific [place] (1.000-1.030) Urine Protein (Negative) Urine Glucose (UA) (Negative) Urine Ketones (Negative) Urine Blood (Negative) Urine Nitrite (Negative) Urine Bilirubin (Negative) Urine Urobilinogen (Negative) Ur Leukocyte Esterase (Negative) Urine Opiates Screen (Neg) Ur Methadone, Qual (Neg) Urine Barbiturates (Neg) Ur Phencyclidine (PCP) (Neg) U Amphetamin/Meth Scrn (Neg) MDMA (Ecstasy) Screen (Neg) U Benzodiazepines Scrn (Neg) Ur Cocaine Metabolite (Neg) U Marijuana (THC) Screen (Neg) 06/15/18 06/16/18 06/16/18 Range/Units 21:30 02:57 06:16 WBC 9.89 (4.8-10.8) K/uL RBC 4.45 L (4.7-6.1) M/uL Hgb 13.7 L (14.0-18.0) g/dL Hct 40.5 L (42-52) % MCV 91.0 (80-100) fL MCH 30.8 (25-34) pg MCHC 33.8 (32-36) g/dL RDW Std Deviation 45.9 (36.4-46.3) fL RDW Coeff of Natalie 13.9 (11.5-14.5) % Plt Count 235 (130-400) K/uL MPV 9.9 (7.4-10.4) fL Immature Gran % (Auto) 0.4 % Neut % (Auto) 56.5 % Lymph % (Auto) 35.5 % Angelina % (Auto) 6.3 % Eos % (Auto) 1.2 % Baso % (Auto) 0.1 % Immature Gran # (Auto) 0.04 H (0.00-0.02) K/uL Neut # (Auto) 5.59 (1.4-6.5) K/uL Lymph # (Auto) 3.51 H (1.2-3.4) K/uL Angelina # (Auto) 0.62 H (0.11-0.59) K/uL Eos # (Auto) 0.12 (0-0.5) K/uL Baso # (Auto) 0.01 (0-0.2) K/uL Sodium (136-145) mmol/L Potassium (3.5-5.1) mmol/L Chloride (98-107) mmol/L Carbon Dioxide (21-32) mmol/L Anion Gap (3-11) BUN (7-18) mg/dl Creatinine (0.6-1.4) mg/dl Est Cr Clr Drug Dosing ml/min Est GFR ( Amer) Est GFR (Non-Af Amer) BUN/Creatinine Ratio (10-20) Glucose (70-99) mg/dl Calcium (8.5-10.1) mg/dl Total Bilirubin (0.2-1) mg/dl AST (15-37) U/L ALT (12-78) U/L Alkaline Phosphatase (45-117) U/L Total Protein (6.4-8.2) gm/dl Albumin (3.4-5.0) gm/dl Globulin (2.5-4.0) gm/dl Albumin/Globulin Ratio (0.9-2) Lipase (73-393) U/L Random Cortisol mcg/dl Cortisol Response mcg/dl Cortisol AM Sample Cortisol PM Sample Urine Color Yellow Urine Appearance Clear (Clear) Urine pH 7.5 (4.5-7.5) Ur Specific [place] 1.018 (1.000-1.030) Urine Protein Negative (Negative) Urine Glucose (UA) Negative (Negative) Urine Ketones Negative (Negative) Urine Blood Negative (Negative) Urine Nitrite Negative (Negative) Urine Bilirubin Negative (Negative) Urine Urobilinogen Negative (Negative) Ur Leukocyte Esterase Negative (Negative) Urine Opiates Screen Pos H (Neg) Ur Methadone, Qual Neg (Neg) Urine Barbiturates Neg (Neg) Ur Phencyclidine (PCP) Neg (Neg) U Amphetamin/Meth Scrn Neg (Neg) MDMA (Ecstasy) Screen Neg (Neg) U Benzodiazepines Scrn Neg (Neg) Ur Cocaine Metabolite Neg (Neg) U Marijuana (THC) Screen Pos H (Neg) 06/16/18 06/16/18 06/16/18 Range/Units 06:16 07:59 08:00 WBC (4.8-10.8) K/uL RBC (4.7-6.1) M/uL Hgb (14.0-18.0) g/dL Hct (42-52) % MCV (80-100) fL MCH (25-34) pg MCHC (32-36) g/dL RDW Std Deviation (36.4-46.3) fL RDW Coeff of Natalie (11.5-14.5) % Plt Count (130-400) K/uL MPV (7.4-10.4) fL Immature Gran % (Auto) % Neut % (Auto) % Lymph % (Auto) % Angelina % (Auto) % Eos % (Auto) % Baso % (Auto) % Immature Gran # (Auto) (0.00-0.02) K/uL Neut # (Auto) (1.4-6.5) K/uL Lymph # (Auto) (1.2-3.4) K/uL Angelina # (Auto) (0.11-0.59) K/uL Eos # (Auto) (0-0.5) K/uL Baso # (Auto) (0-0.2) K/uL Sodium 140 (136-145) mmol/L Potassium 4.0 (3.5-5.1) mmol/L Chloride 110 H (98-107) mmol/L Carbon Dioxide 24 (21-32) mmol/L Anion Gap 6.0 (3-11) BUN 16 (7-18) mg/dl Creatinine 1.35 D (0.6-1.4) mg/dl Est Cr Clr Drug Dosing 94.8 ml/min Est GFR ( Amer) 74.5 Est GFR (Non-Af Amer) 64.3 BUN/Creatinine Ratio 11.7 (10-20) Glucose 88 (70-99) mg/dl Calcium 8.4 L (8.5-10.1) mg/dl Total Bilirubin (0.2-1) mg/dl AST (15-37) U/L ALT (12-78) U/L Alkaline Phosphatase (45-117) U/L Total Protein (6.4-8.2) gm/dl Albumin (3.4-5.0) gm/dl Globulin (2.5-4.0) gm/dl Albumin/Globulin Ratio (0.9-2) Lipase (73-393) U/L Random Cortisol mcg/dl Cortisol Response mcg/dl Cortisol AM Sample Cancelled Cortisol PM Sample Urine Color Urine Appearance (Clear) Urine pH (4.5-7.5) Ur Specific [place] (1.000-1.030) Urine Protein (Negative) Urine Glucose (UA) (Negative) Urine Ketones (Negative) Urine Blood (Negative) Urine Nitrite (Negative) Urine Bilirubin (Negative) Urine Urobilinogen (Negative) Ur Leukocyte Esterase (Negative) Urine Opiates Screen (Neg) Ur Methadone, Qual (Neg) Urine Barbiturates (Neg) Ur Phencyclidine (PCP) (Neg) U Amphetamin/Meth Scrn (Neg) MDMA (Ecstasy) Screen (Neg) U Benzodiazepines Scrn (Neg) Ur Cocaine Metabolite (Neg) U Marijuana (THC) Screen (Neg) 06/17/18 06/17/18 Range/Units 07:57 07:57 WBC 11.56 H (4.8-10.8) K/uL RBC 4.75 (4.7-6.1) M/uL Hgb 15.3 (14.0-18.0) g/dL Hct 42.7 (42-52) % MCV 89.9 (80-100) fL MCH 32.2 (25-34) pg MCHC 35.8 (32-36) g/dL RDW Std Deviation 44.5 (36.4-46.3) fL RDW Coeff of Natalie 13.5 (11.5-14.5) % Plt Count 265 (130-400) K/uL MPV 9.9 (7.4-10.4) fL Immature Gran % (Auto) % Neut % (Auto) % Lymph % (Auto) % Angelina % (Auto) % Eos % (Auto) % Baso % (Auto) % Immature Gran # (Auto) (0.00-0.02) K/uL Neut # (Auto) (1.4-6.5) K/uL Lymph # (Auto) (1.2-3.4) K/uL Angelina # (Auto) (0.11-0.59) K/uL Eos # (Auto) (0-0.5) K/uL Baso # (Auto) (0-0.2) K/uL Sodium 137 (136-145) mmol/L Potassium 3.9 (3.5-5.1) mmol/L Chloride 105 (98-107) mmol/L Carbon Dioxide 25 (21-32) mmol/L Anion Gap 7.0 (3-11) BUN 14 (7-18) mg/dl Creatinine 1.46 H (0.6-1.4) mg/dl Est Cr Clr Drug Dosing 86.2 ml/min Est GFR ( Amer) 67.8 Est GFR (Non-Af Amer) 58.5 BUN/Creatinine Ratio 9.2 L (10-20) Glucose 125 H (70-99) mg/dl Calcium 9.0 (8.5-10.1) mg/dl Total Bilirubin (0.2-1) mg/dl AST (15-37) U/L ALT (12-78) U/L Alkaline Phosphatase (45-117) U/L Total Protein (6.4-8.2) gm/dl Albumin (3.4-5.0) gm/dl Globulin (2.5-4.0) gm/dl Albumin/Globulin Ratio (0.9-2) Lipase (73-393) U/L Random Cortisol mcg/dl Cortisol Response mcg/dl Cortisol AM Sample Cortisol PM Sample Urine Color Urine Appearance (Clear) Urine pH (4.5-7.5) Ur Specific [place] (1.000-1.030) Urine Protein (Negative) Urine Glucose (UA) (Negative) Urine Ketones (Negative) Urine Blood (Negative) Urine Nitrite (Negative) Urine Bilirubin (Negative) Urine Urobilinogen (Negative) Ur Leukocyte Esterase (Negative) Urine Opiates Screen (Neg) Ur Methadone, Qual (Neg) Urine Barbiturates (Neg) Ur Phencyclidine (PCP) (Neg) U Amphetamin/Meth Scrn (Neg) MDMA (Ecstasy) Screen (Neg) U Benzodiazepines Scrn (Neg) Ur Cocaine Metabolite (Neg) U Marijuana (THC) Screen (Neg) Imaging Data Radiologist's Impression: Radiology results as stated below per my review and the radiologist's interpretation: XR ribs LT min 3V w [id number] HISTORY: 42 years-old Male Pt c/o left rib pain acute left-sided rib pain COMPARISON: Chest radiograph 10/06/2015 TECHNIQUE: PA view of the chest with 4 views of the left ribs FINDINGS: Cardiomediastinal and hilar silhouettes are within normal limits. Mild right hemidiaphragmatic elevation. No pneumothorax, pleural effusion, focal airspace consolidation or overt pulmonary edema. No acute displaced rib fracture identified. IMPRESSION: 1. No acute processes of the chest. 2. No acute rib fracture or pneumothorax. The above report was generated using voice recognition software. It may contain grammatical, syntax or spelling errors. Electronically signed by: Josiah Ponce M.D. 06/15/2018 8:52 PM ABDOMEN AND PELVIS CT WITHOUT CONTRAST CT DOSE: 1057.37 mGy.cm HISTORY: Acute left-sided flank pain Pt c/o left flank pain TECHNIQUE: Multiaxial CT images of the abdomen and pelvis were performed without contrast. A dose lowering technique was utilized adhering to the principles of ALARA. COMPARISON STUDY: None. FINDINGS: There is a lobular linear nodular density about the lateral basal segment left lower lobe measuring up to 3.0 cm in length suggestive of mucoid impaction and expansion of the bronchus with minimal associated tree-in-bud nodules seen distally suggesting associated bronchiolitis. Punctate calcified granulomata about the left lung base. Ptosis or pneumoperitoneum. Imaged inferior cardiac chambers are unremarkable. Contracted gallbladder. Liver is unremarkable. Spleen, and pancreas appear unremarkable. Mild stranding about the left greater than right adrenal glands, indeterminate. Additionally, there is mild thickening about the bilateral adrenal glands. Indeterminate area of slightly decreased attenuation about the posterior interpolar left kidney, 11 mm suggests renal cyst. No renal calculi or obstructive uropathy. Minimal perinephric stranding adjacent to the superior pole left kidney. Mild wall thickening of the bladder with partial distention. Prostate is unremarkable. Aorta and IVC are within normal limits. No bowel obstruction or focal bowel wall thickening. Normal appendix. No ascites or mesenteric inflammatory changes. Mildly prominent bilateral inguinal chain lymph nodes, likely reactive. Bones appear intact. Multilevel spondylitic spurring and facet arthrosis. Moderate intervertebral disc space narrowing at L5-S1. Bilateral foraminal narrowing noted at this interspace. Subcortical cystic changes about the bilateral femoral acetabular joints with joint space narrowing. IMPRESSION: 1. No renal calculi or obstructive uropathy. 2. Mild thickening with surrounding inflammatory stranding about the left greater than right adrenal glands. This finding is nonspecific with differential considerations including adrenal insufficiency or subacute adrenal hemorrhage. 3. No bowel obstruction or focal bowel wall thickening. Normal appendix. 4. Tubular linear 3.0 cm lesion of the lateral basal segment left lower lobe suggests bronchial mucous plugging with minimal adjacent bronchiolitis. 5. Additional findings as above. Electronically signed by: Josiah Ponce M.D. 06/15/2018 10:13 PM Blood Pressure Blood Pressure Findings: Elevated blood pressure MDM Narrative This is a 42-year-old male who presents emergency department complaining of left -sided flank pain. Patient was sent for a CAT scan the abdomen pelvis and I am concerned that the patient has a adrenal hemorrhage based on this. In addition the patient also has an elevated blood pressure. Due to the nature of the injury I did discuss the case with endocrinology who is on-call in [place]. They suggested a cortisol stim level test be obtained. They also requested an MRI of the adrenal glands for follow-up. I did discuss the case with the on- call hospitalist who agreed to admit the patient. Patient and family were in agreement with the treatment plan. In the emergency department the patient was given Toradol as well as Dilaudid for his pain. Repeat examination revealed improvement the patient's symptoms. Impression & Plan Acute flank pain Discharge Plan Visit Data *Final* Discharge Date/Time: 06/16/18 01:07 Chief Complaint: Flank Pain Stated Complaint: L FLANK PAIN ED Provider: Сергей Dhaliwal Discharge Problem: Acute flank pain Patient Disposition: Admitted As Inpatient Condition: Fair Discharge Instructions Interventions: ED Discharge Assessment Last Done: 06/16/18 01:07 The scribe's documentation has been prepared under my direction and personally reviewed by me in its entirety. I confirm that the note above accurately reflects all work, treatment, procedures, and medical decision making performed by me.
[2018-06-17] MEDS ORDERED: guaiFENesin 600 MG TABCR PO SCH (21:00)
[2018-06-19 13:02] LABS: Creatinine Ur 131 mg/dL (20-320); Total Metanephrine 189 mcg/g cr (155-608)
[2018-06-19 15:55] LABS: Hydrocodone Urine NEGATIVE NG/ML (CUTOFF=50); Hydromor Urine 1120 NG/ML (CUTOFF=50); Marijuana Quant, GCMS Urine 284 NG/ML (CUTOFF=5); Morphine Urine NEGATIVE NG/ML (CUTOFF=50); Norhydrocodone Conf Ur NEGATIVE NG/ML (CUTOFF=50); Noroxycodone Urine NEGATIVE NG/ML (CUTOFF=50); Oxycodone Urine NEGATIVE NG/ML (CUTOFF=50)
--- NOTE | 2018-06-24 07:26 | Discharge Summary ---
Date of Service June 17, 2018 Admission HPI Per Admitting Provider 42-year-old male presents complaining of the acute onset of left, non-radiating flank pain beginning the late evening of June 15. He says that he has been coughing more harshly over the past week and the pain was of sudden onset at the time of a strong cough. He says his cough may be related to either having "the flu" a week ago or because he says he has been smoking both cigarettes and marijuana quite frequently. He will not clarify exactly how much tobacco or marijuana he consumes. Regarding his self-reported flu symptoms , he says he had a subjective fever and general flu symptoms but that resolved within 3-4 days. He says he continues to have a cough occasionally productive of mucus. Regarding the flank pain, he says he has never had similar pain prior. He says the pain never completely resolved since its onset but has improved with pain medicines in the ED. He denies taking any fvgt-apj-yudputr pain medications for this. However, he does admit to using Suboxone obtained from his friends about every other day for perhaps the past year (though he will not clarify). He denies any previous opioid or heroin use and says that he started the Suboxone due to low back pain. He did take some Coricidin HBP for his flu symptoms. He also occasionally takes ibuprofen. He states that this flank pain remains localized and denies any chest pain, shortness of breath , anterior abdominal pain, recent trauma or injuries, or any other acute concerns. Principal Diagnosis Uncontrolled hypertension Discharge Exam GENERAL: Awake, alert, well-appearing, in no acute distress HENT: Normocephalic, atraumatic. Oropharynx unremarkable. EYES: Normal conjunctiva. Sclera non-icteric. NECK: Inspection normal. Non-tender. Supple and full ROM. No nuchal rigidity. CARDIAC: +S1S2 RRR, no murmurs. RESPIRATORY: Clear to auscultation. No wheezes or rales. Normal respiratory effort. GI: +BS, soft, non-distended. No tenderness to palpation. No rebound or guarding. No appreciable masses. EXTREMITIES: No pedal edema or calf tenderness. Moving all extremities naturally and easily. NEURO: No gross neuro deficits. Skin: There is an approx. four cm palpable mass in the very low lateral right lower quadrant abdominal region that is non-tender, has no overlying skin changes, and has the consistency of a lipoma. Discharge Data Allergies Allergy/AdvReac Type Severity Reaction Status Date / Time No Known Allergies Allergy Verified 06/15/18 20:33 Consultations 06/15/18 22:30 ED Decision to Admit Stat Ordered Studies 06/15/18 20:28 CT abd pelvis wo con Stat 06/16/18 00:15 MR abdomen wo con Urgent Hospital Course (1) Acute flank pain: 42-year-old male was admitted on 16 June 2018 with c/o left flank pain and evidence of adrenal hemorrhage on CT. Left flank pain and concern for adrenal hemorrhage: Acute onset of pain about 24 hours prior to admit following increased cough. CT a/p non-con concerning for possible adrenal hemorrhage. In ED, pain treated with toradol & dilaudid. Per their notes, Dr. William of [facility] endocrinology recommended MRI and admission. - MRI was ordered to confirm adrenal hemorrhage. This was negative. Patient also had elevated BP which makes adrenal hemorrhage unlikely. Cortisol level was also normal. will discharge atient and have him f/u with his PCP. Patient did have pain on his left side of his abdomen, this is likely to be musculoskeltal as his MRI was negative and did show inflammation on his abdmonial muscle. Cough: He attributes his cough to smoking (cigarettes and marijuana). Denies chest pain or shortness of breath. Says he had the flu a week ago with symptom resolution three days later except the cough. Was taking an OTC cold medicine, possibly Coricidin HBP. Here is afebrile, not tachycardic or tachypneic, normal room SpO2, and clear lungs to auscultation. Elevated BP: Initially 169/103. Monitoring along with adrenal workup as above. Ordered 2 BP meds, lisinopril and amlodipine. Elevated creatinine: Admit Cr 1.67. No available comparison and patient denies underlying known renal disease. UA clear. Says he occasionally takes ibuprofen for back pain. - Will recheck with AM labs after some IVF. Substance abuse: Patient admits to frequent marijuana use as well as street- derived Suboxone for back pain. He denies ever using heroin or opioids directly. - Ordered urine drug screen. Abdominal wall mass: Patient says this is been present for quite some time and is not really bothersome to him. Statistically I suspect it is a lipoma. Recommended he have close outpatient follow-up for further evaluation and potential removal. \\ (2) Adrenal hemorrhage: (3) Cough: (4) Elevated BP without diagnosis of hypertension: (5) Elevated serum creatinine: (6) Substance abuse: (7) Abdominal wall mass of right lower quadrant: Total Time Total Time Spent Total Time Spent (In Minutes): 35 Total Time Includes: Examination of the Patient, Discharge Planning and Medication Reconciliation Discharge Plan Discharge Items Patient Disposition: Home - Self-Care Reason For Visit: L FLANK PAIN Discharge Diagnosis: Left flank pain from musculoskeletal source Condition: Fair Discharge Goals: Decrease discomfort and Learn about illness Activity: Resume your previous activity Non-emergency contact: Primary Care Provider Call non-emergency contact if: you have any medication questions Diet: Regular Addtl Provider Instructions: Followup with PCP in 1-2 weeks. Recheck BMP at next appointment. Ok to buy over the counter lidocaine patches 4%. Use as directed. Prescriptions: New oxycodone-acetaminophen [Percocet] 5-325 mg tablet 1 tab PO Q6H Qty: 14 RF: 0 guaifenesin [Mucinex] 600 mg Tablet Extended Release 12hr 1,200 mg PO Q12 Qty: 14 RF: 0 amlodipine 5 mg tablet 5 mg PO DAILY Qty: 30 RF: 0 lisinopril 10 mg tablet 10 mg PO HS Qty: 30 RF: 0 oxycodone 5 mg tablet 5 mg PO Q6H PRN (Reason: pain) Qty: 20 RF: 0 Continue Otc Cold & Flu Med 1 dose PO DIRECTED PRN (Reason: Cold Symptoms) RF: 0 Visit Report Forms: My [facility] Stand-Alone Forms: My [facility] Discharge Orders: Discharge Order (Routine); Ordered 06/17/18 Ordered By: Marco Michel Admission Data Admit Date/Time: 06/16/18 00:29 Attending Provider: Marco Michel Admit Provider: Josiah Kraus Primary Care Provider: Vivian Kaur Other Providers: Josiah Kraus Service: Telemetry Other Interventions: Discharge Summary Assessment (RN) Last Done: 06/17/18 12:09 DC Date/Time DO NOT enter until pt leaves facility: 06/17/18 12:45
== END 2018-06-17 12:45 | disposition home or self-care (01) | DRG 563 ==
LOC: ED 20:08 → SUATTDRO 06-16 00:29 → 2S 06-16 00:29
DX: S39.011A Strain of muscle, fascia and tendon of abdomen, initial encounter; F12.10 Cannabis abuse, uncomplicated; X58.XXXA Exposure to other specified factors, initial encounter; F11.10 Opioid abuse, uncomplicated; F17.210 Nicotine dependence, cigarettes, uncomplicated; N17.9 Acute kidney failure, unspecified; I16.0 Hypertensive urgency; R05 Cough; R94.4 Abnormal results of kidney function studies; R19.03 Right lower quadrant abdominal swelling, mass and lump